=== PATIENT | male | born 1990 ===

== ENCOUNTER 2021-08-09 22:32 | Emergency (ER) | payer SELFPAY ==
[~2021-08-09] VITALS: Ht 185.4 cm; Wt 81.8 kg
[2021-08-09 23:12] VITALS: BP 129/66
--- NOTE | 2021-08-10 01:51 | NUR ---
not in lobby X3
== END 2021-08-10 01:54 | disposition left against medical advice (07) ==
LOC: ER 22:32
DX: R00.2 Palpitations (principal); Z53.21 Procedure and treatment not carried out due to patient leaving prior to being seen by health care provider
CPT/HCPCS: 93005